=== PATIENT | female | born 1950 | race Caucasian/White ===

== ENCOUNTER → 2024-11-30 15:53 | Outpatient (REF) | payer OTHER, SELFPAY | LOC: MRI 3T 15:53 | PROVIDERS: ATTENDING PHYSICIAN Otolaryngology; FAMILY PHYSICIAN Nurse Practitioner Gerontology | DX: R42 Dizziness and giddiness (principal) | CPT/HCPCS: 70553; A9575 ==

== ENCOUNTER 2025-01-21 06:35 | Day surgery (SDC) | payer OTHER, SELFPAY | END 2025-01-21 14:00 | disposition home or self-care (01) | LOC: GI 06:35 | PROVIDERS: ATTENDING PHYSICIAN Internal Medicine | DX: Z12.11 Encounter for screening for malignant neoplasm of colon (principal); K64.8 Other hemorrhoids; K57.30 Diverticulosis of large intestine without perforation or abscess without bleeding; K55.20 Angiodysplasia of colon without hemorrhage; K58.9 Irritable bowel syndrome, unspecified; D12.2 Benign neoplasm of ascending colon; D12.5 Benign neoplasm of sigmoid colon; D12.3 Benign neoplasm of transverse colon; Z86.0100 Personal history of colon polyps, unspecified | CPT/HCPCS: 45385; 88305 ==

== ENCOUNTER 2025-07-06 19:55 | Inpatient (IN) | payer OTHER, SELFPAY ==
[2025-07-06 12:56] VITALS: BP 136/75
[2025-07-06 13:15] LABS: Hematocrit 33.1 % (37.0-47.0); Hemoglobin 11.3 g/dL (12.0-16.0); Mean Corp Hgb Conc. 34.1 g/dL (33.0-37.0); Mean Corpuscular Volume 94.3 fL (81.0-99.0); Nucleated Red Blood Cells % 0 %; Platelet Count 192 10^3/uL (130-400); Red Cell Dist. Width 14.6 % (11.5-14.5)
[2025-07-06 13:31] LABS: ALT (SGPT) 32 U/L (0-35); AST (SGOT) 26 U/L (14-36); Albumin 4.0 g/dl (3.5-5.0); Alkaline Phosphatase 56 U/L (38-126); Blood Urea Nitrogen 15 mg/dl (7-17); Calcium 9.3 mg/dl (8.4-10.2); Carbon Dioxide 19 mmol/L (22-30); Chloride 104 mmol/L (98-107); Glucose 89 mg/dl (70-99); Lipase 38 U/L (23-300); Potassium 2.9 mmol/L (3.5-5.1); Sodium 130 mmol/L (135-145); Total Protein 6.9 g/dl (6.3-8.2); eGFR > 60.00
--- NOTE | 2025-07-06 14:30 | EDRN ---
Pt states she arrives for diarrhea for past 5 days, having started on AM.
[2025-07-06 14:31] VITALS: BMI 32.6
[2025-07-06 14:35] VITALS: BP 120/78
[2025-07-06 15:00] VITALS: BP 111/70
--- NOTE | 2025-07-06 15:02 | ED.GENMED ---
History of Present Illness
General
Chief Complaint: Abdominal Symptoms
Time Seen by Provider: 07/06/25 15:02
History of Present Illness
History of Present Illness:
FOCUSED PAST MEDICAL HISTORY
- Diverticulosis, high blood pressure, has had pancreatic pseudocystectomy in 1982
REVIEW OF OLD RECORDS
- Patient had colonoscopy 01/21/2025 with polypectomies and diverticulosis was noted in the sigmoid colon
- Patient was admitted in 2011 with an abdominal wall hernia managed operatively in 2011
Note:
CHIEF COMPLAINT(S)
Watery diarrhea for nearly one week.
HISTORY OF PRESENT ILLNESS
The patient is a 74-year-old female presenting with a chief complaint of watery diarrhea persisting for approximately one week. She denies any vomiting. No recent antibiotic use or hospitalization was noted, and she has no history of Clostridium
difficile infection. A laboratory evaluation indicated normal kidney function, but a low potassium level and decreased bicarbonate were found. The patient reported a lack of significant abdominal pain, though mild stomach achiness was noted. She has
experienced fatigue and weakness due to the symptoms. There is an absence of body-wide achiness, and no significant abnormal white blood cell count was observed. During the visit, the patient considered the possibility of being discharged after
receiving intravenous fluids and potassium supplements, believing she might manage at home post-treatment.
PAST MEDICAL AND SURGICAL HISTORY
- Removal of a pseudocyst from the pancreas in 1982.
- Hernia repair (ventral) in 2011.
- History of twisted bowel.
- Breast cancer with an indwelling port used for treatment.
CHRONIC MEDICAL CONDITIONS SIGNIFICANTLY AFFECTING CARE
Breast cancer, for which the patient has a port.
PHYSICAL EXAM
General: Appears moderately distressed due to weakness but alert and cooperative.
Skin: Slightly dry oral mucosa.
Neck: Supple.
Cardiovascular: 3 out of 6 systolic murmur heard in the right upper sternal border,, no edema.
Respiratory: Non-labored respirations.
Gastrointestinal: Suggestion of abdominal wall hernias, which are soft with minimal tenderness; surgical scars noted.
Neurological: Appropriate mental status.
Psychiatric: Cooperative, appropriate mood and affect.
PROBLEM LIST
- Acute: Watery diarrhea, Dehydration, Electrolyte imbalance (low potassium), Abdominal achiness.
- Chronic: Breast cancer.
PLAN
- Administer intravenous fluids to address dehydration.
- Provide oral potassium supplements to correct electrolyte imbalance.
- Monitor response to treatment with fluids and potassium.
- Encourage the patient to provide a stool sample if possible for further evaluation.
- Consider discharge if the patient stabilizes post-treatment.
- Follow up with primary care or specialist as needed for ongoing management of breast cancer.
DIFFERENTIAL DIAGNOSIS
The Differential Diagnosis includes, in no particular order and is not limited to:
1. Gastroenteritis
2. Irritable bowel syndrome
3. Clostridium difficile infection
4. Inflammatory bowel disease (e.g., Crohns disease, Ulcerative colitis)
5. Bacterial infection (e.g., Salmonella, Shigella, Campylobacter)
6. Viral gastroenteritis
7. Medication-induced diarrhea
8. Parasitic infections (e.g., Giardia, Entamoeba histolytica)
9. Malabsorption syndromes
10. Hyperthyroidism
RADIOLOGY
- I personally reviewed imaging studies and there are some dilated loops of bowel and agree with radiologist's interpretation that there could be a closed-loop obstruction
LABS
- White count 3.7, hemoglobin 11.3, potassium 2.9, bicarb 19, creatinine 0.9
SUMMARY OF ENCOUNTER
The patient, a 74-year-old female, presented to the emergency department with a complaint of watery diarrhea persisting for one week. She reported associated symptoms of fatigue and weakness but no vomiting and minimal abdominal discomfort. There
was no recent antibiotic usage or history of Clostridium difficile infection. Lab evaluations revealed normal kidney function, low potassium levels, and decreased bicarbonate. Due to dehydration, the patient was administered intravenous fluids and
potassium supplements. Despite her weakness, the patient expressed hope that she could manage her symptoms at home and was considering discharge post-treatment.
PLAN
- Continue intravenous fluids to combat dehydration.
- Administer oral potassium supplements to correct electrolyte imbalance.
- Monitor the patients response to the treatment provided.
- The patient should provide a stool sample for further evaluation if possible.
- Consider discharge if the patient shows stabilization post-treatment.
- Advise follow-up with her primary care physician or specialist for ongoing breast cancer management.
INDEPENDENT REVIEW OF LABS AND INTERPRETATION OF TESTS
My independent review of the patients laboratory test results showed low potassium levels and decreased bicarbonate, which contribute to her symptoms.
MEDICAL DECISION MAKING
- Number and Complexity of Problems Addressed: Chronic conditions affecting care include breast cancer. Differential diagnosis considered: Gastroenteritis, Irritable bowel syndrome, Clostridium difficile infection, Inflammatory bowel disease,
Bacterial infection, Viral gastroenteritis, Medication-induced diarrhea, Parasitic infections, Malabsorption syndromes, Hyperthyroidism.
- Data:
- Category 1: Lab tests reviewed indicating normal kidney function but low potassium and decreased bicarbonate levels.
- Category 2: None discussed.
- Category 3: None discussed.
-Risk:
Consideration of Admission/Observation: Escalation of care including admission/observation was considered given the complexity and risk of the patients presenting complaint, exam findings, and her underlying comorbidities. However, ultimately I feel
the patient is safe for outpatient management with close follow-up. Reasoning: Work-up reassuring, does not reveal any acute life/organ-threatening processes, patients symptoms well controlled upon reevaluation, reexamination is reassuring, vitals
are stable, patient agreeable with discharge, reliable for follow-up.
DIAGNOSIS
- Possible closed-loop small bowel obstruction
- Diarrhea, unspecified (ICD-10: R19.7)
- Hypokalemia (ICD-10: E87.6)
- Dehydration (ICD-10: E86.0)
UPDATE
- On reassessment after IV fluids were given, she does not feel as weak but did report some mild ongoing abdominal discomfort
- Physical exam showed only mild diffuse tenderness with no peritoneal signs
- CT imaging suggested the possibility of a closed-loop obstruction
- I spoke to on-call general surgery and recommended NG tube, IV fluids, n.p.o.
- Will give additional potassium IV (gave orally earlier) and will also check lactic acid level
- Plan admission to the hospital
Past History
Past History
ED Past Medical History: None and Other (Status post pancreatic pseudocyst repair, incisional hernia, status post , as hyponatremia, hyper tension, sludge in her gallbladder, diverticular disease)
ED Past Surgical History: None
Social History
Tobacco: Former smoker
Alcohol: Occasional
Family History
Family History: Other (S esophagus hiatal and in her)
Phy Exam
Physical Exam
Physical Exam:
See HPI
Course
Orders/Labs/Results
Orders:
Orders
07/06/25 13:07
Complete Blood Count/With Diff Urgent
Comprehensive Metabolic Panel Urgent
Lipase Urgent
Magnesium Urgent
Comment: ADD ON
07/06/25 15:12
0.9% Sodium Chloride 500 ml [Nss] 1,000 ml IV BOLUS
07/06/25 15:15
Add On- LAB Urgent
Tests Added?: Mg
Potassium Chloride [KCl] 60 meq PO NOW STA
07/06/25 15:17
C DIFF [C difficile Antigen & Toxins] Urgent
COLLINS Source: Feces/Stool
Specimen Description:
Stool Culture Urgent
COLLINS Source: Feces/Stool
Specimen Description:
07/06/25 17:46
CT Abd/pelvis W Iv Cont Urgent
Comment:
Reason For Exam: diffuse abd pain; panc pseudocystectomy; diarrhea;
07/06/25 19:21
Lactic Acid Urgent
Potassium Chloride [KCl] 40 meq 0.9% Sodium Chloride 250 ml [Nss] 250 ml IV NOW
Abnormal Lab Results
07/06/25
13:07
WBC 3.7 L 10^3/uL
(4.8-10.8)
RBC 3.51 L 10^6/uL
(4.20-5.40)
Hgb 11.3 L g/dL
(12.0-16.0)
Hct 33.1 L %
(37.0-47.0)
MCH 32.2 H pg
(27.0-31.0)
RDW 14.6 H %
(11.5-14.5)
Absolute Lymphs (auto) 0.4 L 10^3/uL
(1.2-3.4)
Lymphocytes % 10.6 L %
(20.5-51.1)
Monocytes % 12.5 H %
(1.7-9.3)
Sodium 130 L mmol/L
(135-145)
Potassium 2.9 L mmol/L
(3.5-5.1)
Carbon Dioxide 19 L mmol/L
(22-30)
07/06/25 13:07
07/06/25 13:07
Vital Signs
Initial and Last Documented VS:
Initial Vital Signs
Temp Pulse Resp BP Pulse Ox
36.5 C 96 18 136/75 99
07/06/25 12:56 07/06/25 12:56 07/06/25 12:56 07/06/25 12:56 07/06/25 12:56
Last Documented Vital Signs
Temp Pulse Resp BP Pulse Ox
36.5 C 76 15 116/78 100
07/06/25 12:56 07/06/25 19:00 07/06/25 19:00 07/06/25 17:34 07/06/25 17:45
*Pulse Oximetry
SaO2: 100
Oxygen Mode of Delivery: Room air
Patient hypoxic: no
*Critical Care Note
Total Time (30-74mins, 75-104mins- exclusive of procedures): Not Applicable
ED Attending Note
-
Portions of this chart may have been created with voice recognition software.� Occasional wrong word or��sound alike� substitutions may have occurred due to the inherent limitations of voice recognition software.
Discharge Plan
Departure
Patient Disposition: Admit
Date of Disposition: 07/06/25
Time of Disposition: 19:28
Presentation/result/management discussed w/ accepting MD/DO: Hospitalist
Discharge Problem:
Abdominal pain
Prescriptions:
No Action
calcium carbonate-vitamin D3 [Calcium 600 + D(3)] 1 EACH tablet
1 ea PO BID
mometasone [Nasonex] 17 GM spray,non-aerosol
2 spray intranasal DAILY PRN (Reason: allergies)
glucosamine hairston 2KCl-chondroit 1 EACH capsule
1 ea PO BID
simvastatin 20 MG tablet
20 mg PO QPM
omega-3 fatty acids-fish oil [Fish Oil] 1,000 MG capsule
1 cap PO
Norvasc:
Patient Comments:
dose unknown
omeprazole magnesium [Prilosec OTC] 20 MG tablet,delayed release (DR/EC)
20 mg PO
hydrocodone-acetaminophen [Vicodin] 1 EACH tablet
1 - 2 tab PO Q6HPRN PRN (Reason: severe pain) Qty: 10 0RF
Referrals:
Evaristo Meade CRNP [Family Provider, General]
Interventions
Interventions:
*Risk Screen - Suicide Last Done: 07/06/25 14:32
*General Assessment Last Done: 07/06/25 14:33
*Neglect/Abuse Screening Last Done: 07/06/25 14:33
*ED COVID-19 Vaccine History Last Done: 07/06/25 14:32
*ED Influenza Vaccine History Last Done: 07/06/25 14:32
[facility] Fall Risk Assessment Tool Last Done: 07/06/25 14:32
LW-Odajrh-Gxmzxnlmmv Assessment Last Done: 07/06/25 15:20
Discharge Date and Time
Print Language: YI
--- NOTE | 2025-07-06 15:11 | EDRN ---
Dr. Rutledge in room w/ pt at this time and verbally just ordered 1 liter or NSS wide open at this time.
[2025-07-06] MEDS: NSS 1000 IV (15:13)
[2025-07-06] MEDS: KCL 60 MEQ PO (15:21)
[2025-07-06 15:53] LABS: Magnesium 2.0 mg/dl (1.6-2.3)
[2025-07-06 16:00] VITALS: BP 125/80
--- NOTE | 2025-07-06 16:54 | EDRN ---
Dr. Rutledge in to see pt.
--- NOTE | 2025-07-06 17:00 | EDRN ---
Pt ambulated to BR after being disconnected from electronic device monitor and in BR attempting BM at this time.
[2025-07-06 17:34] VITALS: BP 116/78
--- NOTE | 2025-07-06 17:43 | EDRN ---
Dr. Rutledge in room w/ pt at this time.
--- NOTE | 2025-07-06 17:56 | EDRN ---
Dr. Rutledge ordered CT r/t pt's abd pain.
--- NOTE | 2025-07-06 19:24 | HPS.HSE ---
Family Physician
-
Family Physician: ERICK West
Chief Complaint
-
watery diarrhea
History of Present Illness
74-year-old female with past medical history for pancreatic pseudocyst repair, incisional hernia, hyponatremia, hypertension, gallbladder sludge, diverticular disease presenting with a chief complaint of watery diarrhea persisting for approximately
for 6 days. denied nausea but vomited once. denied abdominal pain. She denies any vomiting. patient complained of poor appetie. denied fever, chills, HUERTA, dizzy or syncope.denied chest pain,sob. denied dysuria or hematuria.
concern of SBO. NG in place. admitting for further management.
Medical History
Past Medical History
Past Medical History: Reports Other
Additional Past Medical History:
Venous insufficiency, chronic hyponatremia, hypertension, hyperlipidemia, allergic rhinitis, lymphedema, osteoarthritis, peripheral venous insufficiency, anxious, depression, angioedema, cardiomegaly, GERD, nonischemic cardiomyopathy, breast cancer,
pancreatic pseudocyst, left outer nodule, rheumatoid arthritis, systolic heart murmur
Past Surgical History: Reports Other
Additional Past Surgical History:
Bilateral knee replacement, incisional hernia repair, bilateral bunionectomy, right wrist ganglionectomy, left lower extremity venous surgery, pancreatic pseudocyst ectomy, , tonsillectomy, right knee revision, left ureterocele, bilateral
cataracts, left mastectomy, left axillary lymph node dissection, left axillary seroma drainage with a spacer
Social History
Tobacco: Former Smoker
Alcohol: Occasional
Drug: None
Family History
Family History: Not pertinent
Allergies / Home Medications
Allergies reflects when Allergies were last updated in [facility].
Home Medications with original date entered in [facility]
Allergy/Medication List:
Allergies
Allergy/AdvReac Type Severity Reaction Status Date / Time
Aminoglycosides Allergy Hives Verified 04/01/13 19:59
cephalexin Allergy Anaphylaxis Verified 04/01/13 19:59
Cephalosporins Allergy Hives Verified 04/01/13 19:59
erythromycin base Allergy Hives Verified 04/01/13 19:59
gabapentin Allergy Unknown Verified 04/01/13 19:59
gentamicin Allergy Anaphylaxis Verified 04/01/13 19:59
lisinopril Allergy Unknown Verified 07/18/16 19:55
morphine Allergy VOMITING/HUERTA Verified 04/01/13 19:59
LLUCINATION
S
penicillin G Allergy Hives Verified 04/01/13 19:59
Penicillins Allergy Hives Verified 04/01/13 19:59
Home Medications
glucosamine sulfate dipotassium Cl 500 mg-chondroitin 400 mg capsule 1 ea PO BID 07/28/09
abemaciclib 100 mg tablet (Verzenio) 100 mg PO BID 07/06/25
acetaminophen 300 mg-codeine 30 mg tablet 1 tab PO HS 07/06/25
bupropion HCl 150 mg 24 hr tablet, extended release 150 mg PO DAILY 07/06/25
dofetilide 500 mcg capsule 500 mcg PO Q12H 07/06/25
empagliflozin 10 mg tablet (Jardiance) 10 mg PO DAILY 07/06/25
furosemide 20 mg tablet 20 mg PO DAILY 07/06/25
letrozole 2.5 mg tablet 2.5 mg PO DAILY 07/06/25
loratadine 10 mg tablet (Claritin) 10 mg PO DAILY 07/06/25
metoprolol succinate 50 mg tablet,extended release 24 hr 50 mg PO Q12H 07/06/25
rivaroxaban 20 mg tablet (Xarelto) 20 mg PO DAILY 07/06/25
rosuvastatin 20 mg tablet 20 mg PO DAILY 07/06/25
tirzepatide (weight loss) 7.5 mg/0.5 mL subcutaneous pen injector (Zepbound) 7.5 mg SC WEEKLY 07/06/25
trospium 60 mg capsule,extended release 24 hr 60 mg PO DAILY 07/06/25
Review of Systems
-
Constitutional: Reports No Symptoms
EENT: Reports No Symptoms
Respiratory: Reports No Symptoms
Cardiac: Reports No Symptoms
Abdomen/GI: Reports Diarrhea
: Reports No Symptoms
Musculoskeletal: Reports No Symptoms
Skin: Reports No Symptoms
Neurological: Reports No Symptoms
Endocrine: Reports No Symptoms
Hematologic/Lymphatic: Reports No Symptoms
Psych: Reports No Symptoms
Physical Exam
Vital Signs
Vital Signs
Temp Pulse Resp BP Pulse Ox
97.7 F 76 15 116/78 100
07/06/25 12:56 07/06/25 19:00 07/06/25 19:00 07/06/25 17:34 07/06/25 17:45
Physical Exam
General: Well Developed, Well Nourished and No Apparent Distress
HEENT: NormoCephalic, Moist mucous membranes and Atraumatic
Respiratory: Clear
Cardiac: S1/S2 and Regular Rhythm; No Murmur or Rub
GI: Soft, Non Tender and Normal Bowel Sounds; No Organomegaly
Rectal: Deferred by Provider
Musculoskeletal: No Clubbing, No Cyanosis and No Edema
Skin: No Rash
Neuro: AO x 3 and Nonfocal/grossly intact
Psych: Calm
Laboratory Results
-
07/06/25 13:07
07/06/25 13:07
Laboratory Results
Total Bilirubin 1.0 mg/dl (0.2-1.3) 07/06/25 13:07
AST 26 U/L (14-36) 07/06/25 13:07
ALT 32 U/L (0-35) 07/06/25 13:07
Alkaline Phosphatase 56 U/L (38-126) 07/06/25 13:07
Lipase 38 U/L (23-300) 07/06/25 13:07
Data Reviewed
-
CT Scan: Report Reviewed by me
Lab Data: Labs Reviewed by me
Impression/Plan
-
# Watery diarrhea concern for closed-loop small bowel obstruction
# History of bowel resection, ventral hernia repair with mesh, pancreatic pseudocyst ectomy
- N.p.o., fluids for hydration
- NG tube
-Stool culture and C. difficile
- Surgery consulted
- CT abdomen pelvis with impression of here is a dilated fluid and air-filled loop of small bowel, probably best visualized on coronal images extending from the left upper abdomen into the left pelvis and then into the right pelvis, where there is a
focal transition of caliber, best seen on coronal views. I have difficulty following the dilated loop of small bowel in the left upper quadrant. The cecum is located in the left upper quadrant, and I believe that I can visualize the ileocecal
junction, probably on coronal images 22 and 23 of series 202, with collapsed caliber distal ileum.Findings suggest the possibility of a closed loop small bowel obstruction. As warranted, further evaluation with CT scan with oral contrast may be
helpful.he cecum is in the left upper quadrant. There is gaseous distention of the cecum as well as the transverse colon.No evidence of free intraperitoneal air.Left adrenal gland mass is present, increased in size since examination 2016. Appearance
is not characteristic for adenoma, although adenomas still possible. Other differential considerations include metastatic disease and adrenal cortical carcinoma. This is adjacent to the posterior margin of the stomach, but probably separate, and
therefore gastric fundal diverticulum is unlikely.Slight nodularity of the central right adrenal gland which appears stable from 2016 examination and probably represents a small adenoma or hyperplasia.Cholelithiasis with distention of the
gallbladder. No CT findings for acute cholecystitis. No evidence of biliary ductal dilation.Bony degenerative changes as described.
# Metabolic acidosis/hypokalemia secondary to diarrhea/dehydration
# Acute on chronic hyponatremia
-Sodium 130, potassium 2.9, CO2 19
- Fluids continued
- IV KCl
- BMP in the morning
# History of breast cancer
- S/p mastectomy
- Last chemo in 2022
- Patient is on Verzenio as outpatient
# Anxiety
-Bupropion as outpatient
# History of paroxysmal A-fib
# Congestive heart failure
- Will hold Tikosyn and Xarelto
- IV Lopressor as needed
- Hold Jardiance and Lasix
# Hyperlipidemia
- On statin as outpatient
#DVT prophylaxis
-scd
#CODE status
-full code
--- NOTE | 2025-07-06 19:30 | W.PN.UPDATE ---
Update Note
Progress Note Update
This note serves as an addendum to the H&P by outside energy sales representatives Melvin Rosas
HPI
74F
PHX: Removal of a pseudocyst from the pancreas(1982) Ventral Hernia repair(2011) HX twisted bowel, HX Breast cancer with an indwelling port used for treatment.
seen at ER
- abdominal discomfort and fullness + watery diarrhea for 5d + denied any significant abd pain at first
- denies any vomiting.
- No recent ABx use or hospitalization was noted
- No prior HX Clostridium difficile infection.
- lack of significant abdominal pain, though mild stomach achiness was noted.
ROS
Last nl BM 6days ago
- since the watery diarrhea
- Vomit once
- POS flatus many times
- Denied nausea
Relevant VS
Temp Pulse Resp BP Pulse Ox
97.7 F 76 15 116/78 100
07/06/25 12:56 07/06/25 19:00 07/06/25 19:00 07/06/25 17:34 07/06/25 17:45
PE
Gen:
HEENT: NGT placed - no NGT aspirate yet, empty can
Neck: supple
Lungs: symmetric AE
Cor: RRR S1 S2
Abdomen:�distended and firm , NT NG , NRT, POS BS and high pitch
PET TECHNOLOGIST:AAO3
MS: No edema
Psych: Nl mood and affect
Relevant Data
07/06/25
13:07
WBC 3.7 L
Hgb 11.3 L
Plt Count 192
Sodium 130 L
Potassium 2.9 L
Chloride 104
Carbon Dioxide 19 L
Creatinine 0.9
eGFR > 60.00
Glucose 89
Total Bilirubin 1.0
AST 26
ALT 32
[address] AP w IV
- Findings suggest the possibility of a closed loop small bowel obstruction. As warranted, further evaluation with CT scan with oral contrast may be helpful.
- The cecum is in the left upper quadrant. There is gaseous distention of the cecum as well as the transverse colon.
- No evidence of free intraperitoneal air.
- Left adrenal gland mass is present, increased in size since examination 2016. Appearance is not characteristic for adenoma, although adenomas still possible.
Other differential considerations include metastatic disease and adrenal cortical carcinoma.
This is adjacent to the posterior margin of the stomach, but probably separate, and therefore gastric fundal diverticulum is unlikely.
- Slight nodularity of the central right adrenal gland which appears stable from 2016 examination and probably represents a small adenoma or hyperplasia
- Cholelithiasis with distention of the gallbladder. No CT findings for acute cholecystitis. No evidence of biliary ductal dilation.
- Bony degenerative changes as described.
No prior hospitalist admission:
ASSESSMENT & PLAN
Suspect partial closed loop SBO: Plenty of flatus and watery BMs
No evidence of free intraperitoneal air
- Tolerating NGT
- NGT to gravity
- NPO and IV NS
- PRN analgesia
- PRN anti emetics
- IOs
- GS consulted
Hyponatremia
Hypokalemia
- due to dehydration and decres PO intake
- IV NS
- IV KCL 40 x at ER
HX Prx AF
- check EKG
- Hold Xarelto
- Hold Tikosyn
- PRN IV Metoprolol 5 mg q6h prn
- To consider Heparin gtt if prolonged NPO > 24 Hrs
- FU @ [facility] [place]
HX CHF type unknown
Clinically vol. contracted
- FU daily Wt and IOs
- Gentle IV NS
HLD
- Hold Simvastatin - due to NPO/NGT
pHTN
- Hold Amlodipine
HX Breast CA 2022
- has PORT implant
- s/p Lt mastectomy , XR and Last chemo in 2022
- Recent PET scan is clear
- FU @ [facility]
DVT Px: SCD
Full code
IP MS
[2025-07-06] MEDS: KCL 270 MEQ IV (20:20)
[2025-07-06 23:18] VITALS: BP 110/69
[2025-07-07] VITALS (7 sets, daily range): BP systolic 104–124; BP diastolic 57–72; BMI 32.6
[2025-07-07] MEDS: NSS 1000 IV ×2 (00:32→09:32)
[2025-07-07 09:06] LABS: Hematocrit 32.0 % (37.0-47.0); Hemoglobin 10.8 g/dL (12.0-16.0); Mean Corp Hgb Conc. 33.8 g/dL (33.0-37.0); Mean Corpuscular Volume 95.5 fL (81.0-99.0); Platelet Count 180 10^3/uL (130-400); Red Cell Dist. Width 15.4 % (11.5-14.5)
[2025-07-07] MEDS: OMNIPAQUE 50 ML PO (09:32)
--- NOTE | 2025-07-07 09:57 | CON.GS ---
Addendum entered and electronically signed by John Vargas MD 07/07/25 13:56:
Rpt CT without signs of SBO. RLQ spigelian vs incisional hernia noted, unobstructed loop of bowel present within the hernia, was not in the hernia on admit CT. OK to DC NGT and start CLD. D/w Hospitalist.
Addendum entered and electronically signed by John Vargas MD 07/07/25 11:23:
I was physically present and personally performed the tinsley portions of the surgical evaluation and/or procedure with the resident. I discussed the findings, reviewed the resident�s note, and confirmed the medical decision-making. I provided direct
supervision as required and agree with the assessment and plan as documented with the following additions/corrections:
74F with one week diarrhea, multiple bouts daily, mild generalized soreness she attributes to the frequent stools but no significant ab pain, no n/v, no f/c. Began after seafood meal. Imaging concerning for poss pSBO with transition point in RLQ
with significant gaseous distention of the colon and air tracking to the rectum. No further diarrhea since admit. Plan for stool studies when sample available. Would rpt CT scan with PO contrast today.
Original Note:
Consultation
-
Date/Time Consultation Requested: 07/06/2025
Date/Time Consultation Performed: 07/07/2025
Requesting Provider: Jaylyn Rosas
Performing Provider: Dr. Vargas
Reason for Consultation: SBO
Medical History
-
Chief Complaint: Abdominal pain, watery diarrhea
History of Present Illness:
Ms. Fuller is a 74-year-old woman coming in with watery diarrhea of 1 week and bellyache. She reported that it started about a week ago after traveling to [place] with family and eating out at a restaurant where she ordered seafood. No other family
members are ill or have similar symptoms. She reports her stool is brown liquid, no bloody bowel movements and no black stools. She reports no abdominal pain but occasional bellyache that is intermittent. She reports no fevers or chills and
reports that she has been burping and passing gas multiple times. She has a history of multiple abdominal surgeries including pancreatic cyst pseudocyst repair, multiple hernias, , and incarcerated bowel that did not require resection
about 7 years ago. She also has a past medical history of hypertension chronic hyponatremia, hyperlipidemia, GERD, nonischemic cardiomyopathy, breast cancer, rheumatoid arthritis, venous insufficiency, angioedema. She reports that she is
up-to-date with her colonoscopies with no significant abnormalities noted. This morning she did not endorse nausea or vomiting denied abdominal pain, with minimal output from her NG tube. CT scan in the ED notable for dilated small bowel and
gaseous distention of the colon with air present in the rectum.
Past Medical History
Past Medical History: Cancer (Left breast cancer s/p mastectomy), GERD, HTN, Hypercholesterolemia, Psychiatric (Anxiety, depression) and Other (Venous insufficiency, chronic hyponatremia, allergic rhinitis, lymphedema, osteoarthritis, angioedema,
cardiomegaly, GERD, nonischemic cardiomyopathy, pancreatic pseudocyst, left outer nodule, rheumatoid arthritis )
Past Surgical History: , Hernia Repair (Incisional hernia), Orthopedic (Bilateral TKA, with right revision), Tonsilectomy and Other (bilateral bunionectomy, right wrist ganglionectomy, left lower extremity venous surgery, pancreatic
pseudocyst ectomy, left ureterocele, bilateral cataracts, left mastectomy, left axillary lymph node dissection, left axillary seroma drainage )
Social History
Tobacco: Former Smoker
Alcohol: Occasional
Drug: None
Family History
Family History: Reviewed & Not Pertinent
Allergies / Home Medications
Allergy/AdvReac Type Severity Reaction Status Date / Time
Aminoglycosides Allergy Hives Verified 04/01/13 19:59
cephalexin Allergy Anaphylaxis Verified 04/01/13 19:59
Cephalosporins Allergy Hives Verified 04/01/13 19:59
erythromycin base Allergy Hives Verified 04/01/13 19:59
gabapentin Allergy Unknown Verified 04/01/13 19:59
gentamicin Allergy Anaphylaxis Verified 04/01/13 19:59
lisinopril Allergy Unknown Verified 07/18/16 19:55
morphine Allergy VOMITING/HUERTA Verified 04/01/13 19:59
LLUCINATION
S
penicillin G Allergy Hives Verified 04/01/13 19:59
Penicillins Allergy Hives Verified 04/01/13 19:59
�Medication �Instructions �Recorded �Confirmed �Type
glucosamine sulfate dipotassium Cl 1 ea PO BID 07/28/09 07/06/25 History
500 mg-chondroitin 400 mg capsule
abemaciclib 100 mg tablet 100 mg PO BID 07/06/25 07/06/25 History
(Verzenio)
acetaminophen 300 mg-codeine 30 mg 1 tab PO HS 07/06/25 07/06/25 History
tablet
bupropion HCl 150 mg 24 hr tablet, 150 mg PO DAILY 07/06/25 07/06/25 History
extended release
dofetilide 500 mcg capsule 500 mcg PO Q12H 07/06/25 07/06/25 History
empagliflozin 10 mg tablet 10 mg PO DAILY 07/06/25 07/06/25 History
(Jardiance)
furosemide 20 mg tablet 20 mg PO DAILY 07/06/25 07/06/25 History
letrozole 2.5 mg tablet 2.5 mg PO DAILY 07/06/25 07/06/25 History
loratadine 10 mg tablet (Claritin) 10 mg PO DAILY 07/06/25 07/06/25 History
metoprolol succinate 50 mg 50 mg PO Q12H 07/06/25 07/06/25 History
tablet,extended release 24 hr
rivaroxaban 20 mg tablet (Xarelto) 20 mg PO DAILY 07/06/25 07/06/25 History
rosuvastatin 20 mg tablet 20 mg PO DAILY 07/06/25 07/06/25 History
tirzepatide (weight loss) 7.5 7.5 mg SC WEEKLY 07/06/25 07/06/25 History
mg/0.5 mL subcutaneous pen
injector (Zepbound)
trospium 60 mg capsule,extended 60 mg PO DAILY 07/06/25 07/06/25 History
release 24 hr
Review of Systems
-
History Source: Patient
All other systems: Negative unless noted
Abdomen/GI: Nausea and Diarrhea
A 10 point review of systems was completed, and was negative except as per HPI.
Physical Exam
Vital Signs
Temp Pulse Resp BP Pulse Ox
98.3 F 108 16 124/66 98
07/07/25 07:10 07/07/25 07:10 07/07/25 07:10 07/07/25 07:10 07/07/25 07:10
07/06/25 07/07/25 07/08/25
06:59 06:59 06:59
Actual Weight 75.6 kg
Body Mass Index (BMI) 32.6
Lab Results
07/07/25 08:49
WBC 2.9 10^3/uL (4.8-10.8) L 07/07/25 08:49
Hgb 10.8 g/dL (12.0-16.0) L 07/07/25 08:49
Hct 32.0 % (37.0-47.0) L 07/07/25 08:49
Plt Count 180 10^3/uL (130-400) 07/07/25 08:49
Abs Immat Gran (auto) 0.0 10^3/uL (0-0.05) 07/06/25 13:07
Neutrophils % 75.2 % (42.2-75.2) 07/06/25 13:07
Physical Exam
General: Well Developed, Well Nourished, No Apparent Distress and Comfortable; Negative Fever or Chills
HEENT: Normocephalic and Anicteric
GI: Soft, Non Distended, Tender (Mild tenderness to palpation left upper quadrant, left lower quadrant), Incisions (Well-healed incisions from prior surgeries) and Other (No guarding)
Skin: Warm and Dry; Negative Jaundice
Neuro: Awake and Alert
Assessment / Plan
-
Ms. Fuller is a 74-year-old woman coming in with watery diarrhea of 1 week and bellyache. She reported that it started about a week ago after traveling to [place] with family and eating out at a restaurant where she ordered seafood. She was
admitted for metabolic derangements CT abdomen pelvis showed dilated small bowel and distention of colon with air in rectum.
#Metabolic acidosis secondary to acute diarrhea
#SBO?
Initially concern for SBO due to dilated bowel loops however air so present in colon and rectum
Noncontrast CT images hard to interpret
- N.p.o.
- IV fluids
- Follow-up stool culture and C. difficile
- Repeat CT abdomen pelvis with oral contrast through NG tube
- Clamp NG tube after contrast
- Pending CT images, remove NG tube, initiate CLD
[2025-07-07 10:28] LABS: Blood Urea Nitrogen 8 mg/dl (7-17); Calcium 8.7 mg/dl (8.4-10.2); Carbon Dioxide 19 mmol/L (22-30); Chloride 113 mmol/L (98-107); Estimated Creatinine Clearance 76 ml/min; Glucose 68 mg/dl (70-99); Potassium 3.7 mmol/L (3.5-5.1); Sodium 138 mmol/L (135-145); eGFR > 60.00
--- NOTE | 2025-07-07 11:04 | W.PN.HOSP.TC ---
Addendum entered and electronically signed by Burak Miranda DO 07/07/25 16:45:
Spoke with Dr. Vargas, we discussed CT scan findings. He believes that patient has acute infectious colitis. No evidence of obstruction.
Start clear liquid diet, advance as tolerated. Resume Xarelto, Tikosyn.
Original Note:
Today's Communication/Plan
-
Lactated Ringer's IV fluids
Await CT
Assessment / Plan
Assessment / Plan
Gen-AAOx3, NAD
HEENT-NC, AT, anicteric, clear oral mm, NG tube disconnected
Neck-supple
CV-reg, no M, +S1/S2
Lungs-clear B/L
Abd-soft, NT, ND
Ext-no edema
Musculoskeletal-no cyanosis, clubbing
Skin-warm and dry
Neuro-grossly non-focal
Psych-calm, cooperative
Small bowel obstruction -awaiting repeat CT with oral and IV contrast. Continue NPO. NG tube clamped. General surgery following. Patient denies history of bowel obstruction in the past.
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
Hypovolemic hyponatremia -improved.
Hypokalemia -improved.
Normal anion gap metabolic acidosis -hyperchloremic and exacerbated by normal saline infusion. Will change to lactated Ringer's IV fluids. Labs in the morning.
Paroxysmal atrial fibrillation -holding Xarelto for n.p.o. status, also in case of any potential procedures.
Hold Tikosyn as well.
Leukopenia, anemia -present on admission. Baseline labs unknown. Monitor for now.
Essential hypertension -stable.
Hyperlipidemia
History of breast cancer -2022. Treated with left mastectomy, radiation and chemotherapy. Has port in place.
Recent PET scan is clear.
Chronic left adrenal mass -noted on CT scan, 3.1 cm. Increased in size compared to 2016 CT according to radiologist. Patient states she has never had a workup for this in the past. Recommend outpatient follow-up with endocrinology.
Colon polyps, diverticulosis, colonic angioectasia, internal hemorrhoids -noted on last colonoscopy December 2024.
Obesity due to excess calories
Full code
Anticipated Discharge: > 48 hours
Subjective/Interval History
-
Date of Service: July 07, 2025
Patient seen and examined. Denies abdominal pain or nausea. No bowel movement so far in the hospital. No other complaints.
Objective Data
-
Labs:
Laboratory Results
07/07/25
08:49
WBC 2.9 L
Hgb 10.8 L
Hct 32.0 L
Plt Count 180
Sodium 138 D
Potassium 3.7 D
Chloride 113 H
Carbon Dioxide 19 L
BUN 8
Creatinine 0.6
Glucose 68 L
Calcium 8.7
Vital Signs:
Vital Signs
Temp Pulse Resp BP Pulse Ox
98.3 F 108 16 124/66 98
07/07/25 07:10 07/07/25 07:10 07/07/25 07:10 07/07/25 07:10 07/07/25 08:00
I&O
07/06/25 07/07/25 07/08/25
06:59 06:59 06:59
Output Total 300 / 300
Balance -300 / -300
Review of Systems
-
History Source: Patient
All other systems: Reviewed and negative
[2025-07-07] MEDS: LR 1000 IV (11:46)
[2025-07-07] MEDS: TOPROL XL 50 MG PO (14:42)
[2025-07-07] MEDS: TIKOSYN 500 MCG PO (14:42)
--- NOTE | 2025-07-07 15:42 | CM ---
Patient seen at bedside on . Patient states that she lives with her and daughter/granddaughters in a 2 story home. Patient has a walker, rollator, commode at home. Patient uses the walker outside the home. Patient PCP is ANAMAR[facility] S[facility] in [place] and she uses the [facility] in [place]. Patient plan is for discharge home with no needs vs home with VN. Patient stated she was independent prior to admission. CM will continue to follow for discharge planning needs.
Plan; home with VN vs home with no needs.
[2025-07-07] MEDS: XARELTO 20 MG PO (17:47)
[2025-07-08] VITALS (7 sets, daily range): BP systolic 97–108; BP diastolic 64–77
[2025-07-08] MEDS: LR 1000 IV (01:17)
[2025-07-08] MEDS: TOPROL XL 50 MG PO ×2 (01:17→15:40)
[2025-07-08] MEDS: TIKOSYN 500 MCG PO ×2 (01:17→15:40)
[2025-07-08] MEDS: CRESTOR 20 MG PO (07:39)
[2025-07-08] MEDS: WELLBUTRIN XL (24 hour extended release) 150 MG PO (07:40)
[2025-07-08] MEDS: FEMARA 2.5 MG PO (07:40)
[2025-07-08 07:54] LABS: Hematocrit 28.0 % (37.0-47.0); Hemoglobin 9.7 g/dL (12.0-16.0); Mean Corp Hgb Conc. 34.6 g/dL (33.0-37.0); Mean Corpuscular Volume 91.2 fL (81.0-99.0); Platelet Count 158 10^3/uL (130-400); Red Cell Dist. Width 15.3 % (11.5-14.5)
[2025-07-08 08:25] LABS: Blood Urea Nitrogen 4 mg/dl (7-17); Calcium 8.3 mg/dl (8.4-10.2); Carbon Dioxide 19 mmol/L (22-30); Chloride 107 mmol/L (98-107); Estimated Creatinine Clearance 76 ml/min; Glucose 82 mg/dl (70-99); Potassium 3.0 mmol/L (3.5-5.1); Sodium 134 mmol/L (135-145); eGFR > 60.00
--- NOTE | 2025-07-08 09:14 | W.PN.GS2 ---
Addendum entered and electronically signed by Bladimir Dietrich MD 07/08/25 10:00:
I was physically present and personally performed the tinsley portions of the surgical evaluation and/or procedure with the resident. I discussed the findings, reviewed the resident�s note, and confirmed the medical decision-making. I provided direct
supervision as required and agree with the assessment and plan as documented with the following additions/corrections:
Passing flatus, no bowel movement
Tolerating liquids, appetite still suppressed. No nausea or vomiting
AFVSS
NAD AAO x 3
ABD: Soft, no significant distention, minimal tenderness. No rebound rigidity or guarding
CT contrast imaging study reviewed from 07/07/2025. Contrast opacifies the small bowel without dilation. Right sided spigelian hernia containing nonobstructed loop of small bowel with contrast at no proximal distention. Cecum appears to be in the
upper abdomen with a bascule configuration but no signs of obstruction or true volvulus.
Assessment/plan: 74-year-old female admitted with possible pSBO versus enteritis
Clinically improving but not resolved, nonobstructive pattern on CT imaging yesterday
Cautious dietary advancement to full liquids
Follow-up abdominal x-ray imaging today to confirm further passage of oral contrast administered yesterday into the colon.
Will follow
Original Note:
Today's Communication / Plan
-
ADAT
Abdominal x-ray
Assessment / Plan
-
Ms. Fuller is a 74-year-old woman coming in with watery diarrhea of 1 week and bellyache. She reported that it started about a week ago after traveling to [place] with family and eating out at a restaurant where she ordered seafood. She was
admitted for metabolic derangements CT abdomen pelvis showed dilated small bowel and distention of colon with air in rectum.
#Metabolic acidosis secondary to acute diarrhea
# Partial SBO
Initially concern for SBO due to dilated bowel loops however air so present in colon and rectum
Noncontrast CT images hard to interpret
Contrast CT without obvious signs of bowel obstruction
No further episodes of diarrhea
- ADAT
- full liquids
- Follow-up stool culture and C. difficile
- Abdominal x-ray to assess for passage of contrast
Subjective Data
-
Patient reported feeling a bit better than yesterday. She was able to tolerate CLD without issues, reported no nausea no vomiting no chest pain no shortness of breath. She had flatus yesterday but not this morning, still yet to have a bowel
movement. No fevers no chills. Date of Service: July 08, 2025
Objective Data
-
Intake and Output
07/07/25 07/08/25 07/09/25
06:59 06:59 06:59
Intake Total 480 / 480
Output Total 300 / 300
Balance -300 / -300 480 / 480
Intake:
Oral fluids 480 / 480
Output:
Gastrointestinal tube output ( 300 / 300
Total)
Other:
Number of approximated MODERATE 3
amounts of urine
Vital Signs
Temp Pulse Resp BP Pulse Ox
98.0 F 79 18 97/64 98
07/08/25 08:07 07/08/25 08:07 07/08/25 08:07 07/08/25 08:07 07/08/25 08:07
Lab Results
07/08/25 07:20
07/08/25 07:20
Calcium 8.3 mg/dl (8.4-10.2) L 07/08/25 07:20
Magnesium 2.0 mg/dl (1.6-2.3) 07/06/25 13:07
Total Bilirubin 1.0 mg/dl (0.2-1.3) 07/06/25 13:07
AST 26 U/L (14-36) 07/06/25 13:07
ALT 32 U/L (0-35) 07/06/25 13:07
Alkaline Phosphatase 56 U/L (38-126) 07/06/25 13:07
Total Protein 6.9 g/dl (6.3-8.2) 07/06/25 13:07
Albumin 4.0 g/dl (3.5-5.0) 07/06/25 13:07
Physical Exam
-
General: Well Developed, Well Nourished, No Apparent Distress and Comfortable
GI: Soft, Non Distended, Mild tenderness to palpation left upper quadrant, left lower quadrant, no guarding, no rebound
Patient has a faye catheter: No
Patient has a central line: No
--- NOTE | 2025-07-08 10:45 | W.PN.HOSP.TC ---
Today's Communication/Plan
-
Replete potassium
Change IV fluids
Abdominal x-ray
Labs in the morning
Assessment / Plan
Assessment / Plan
Gen-AAOx3, NAD
HEENT-NC, AT, anicteric, clear oral mm, NG tube disconnected
Neck-supple
CV-reg, no M, +S1/S2
Lungs-clear B/L
Abd-soft, NT, ND
Ext-no edema
Musculoskeletal-no cyanosis, clubbing
Skin-warm and dry
Neuro-grossly non-focal
Psych-calm, cooperative
Acute gastroenteritis -most likely diagnosis explaining her presentation to the hospital.
Now on full liquid diet, advance as tolerated.
No bowel movements in the hospital so far. Gastroenteritis resolved.
Small bowel obstruction -SBO ruled out on repeat CT scan.
Awaiting abdominal x-ray today to evaluate for movement of contrast as per surgical service.
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
Hypovolemic hyponatremia -134, monitor for now.
Hypokalemia -3.0, will replete. Check magnesium.
Normal anion gap metabolic acidosis -hyperchloremic and exacerbated by normal saline infusion. Bicarbonate still 19 this morning. Will change to sodium bicarbonate infusion. Labs in the morning.
Paroxysmal atrial fibrillation -continue Xarelto, Tikosyn.
Leukopenia, anemia -present on admission. Baseline labs unknown. Monitor for now.
Essential hypertension -stable.
Hyperlipidemia -on rosuvastatin.
History of breast cancer -2022. Treated with left mastectomy, radiation and chemotherapy. Has port in place.
Recent PET scan is clear.
Chronic left adrenal mass -noted on CT scan, 3.1 cm. Increased in size compared to 2016 CT according to radiologist. Patient states she has never had a workup for this in the past. Recommend outpatient follow-up with endocrinology.
Colon polyps, diverticulosis, colonic angioectasia, internal hemorrhoids -noted on last colonoscopy December 2024.
Obesity due to excess calories
Full code
Anticipated Discharge: Within 24 hours
Subjective/Interval History
-
Date of Service: July 08, 2025
Patient seen and examined, denies abdominal discomfort, nausea. No new complaints.
Objective Data
-
Labs:
Laboratory Results
07/08/25
07:20
WBC 2.9 L
Hgb 9.7 L
Hct 28.0 L
Plt Count 158
Sodium 134 L
Potassium 3.0 L
Chloride 107
Carbon Dioxide 19 L
BUN 4 L
Creatinine 0.5 L
Glucose 82
Calcium 8.3 L
Vital Signs:
Vital Signs
Temp Pulse Resp BP Pulse Ox
98.0 F 79 18 97/64 98
07/08/25 08:07 07/08/25 08:07 07/08/25 08:07 07/08/25 08:07 07/08/25 08:07
I&O
07/07/25 07/08/25 07/09/25
06:59 06:59 06:59
Intake Total 480 / 480
Output Total 300 / 300
Balance -300 / -300 480 / 480
Review of Systems
-
History Source: Patient
All other systems: Reviewed and negative
[2025-07-08] MEDS: KCL 40 MEQ PO (11:00)
[2025-07-08] MEDS: SODIUM BICARBONATE 1150 MEQ IV ×2 (11:00→21:39)
[2025-07-08 11:32] LABS: Magnesium 2.0 mg/dl (1.6-2.3)
--- NOTE | 2025-07-08 15:59 | CM ---
Patient stated that she is for discharge tomorrow. IMM provided and patient declined VN needs. CM will continue to follow for discharge planning needs.
Plan; home with no needs.
[2025-07-08] MEDS: XARELTO 20 MG PO (18:35)
[2025-07-08 19:29] LABS: Hepatitis C Antibody Negative (Negative)
[2025-07-08] MEDS: KCL 20 MEQ PO (19:45)
[2025-07-09] MEDS: TIKOSYN 500 MCG PO (02:57)
[2025-07-09] MEDS: TOPROL XL PO (03:05)
[2025-07-09 03:11] VITALS: BP 97/64
[2025-07-09 07:00] VITALS: BP 102/66
[2025-07-09 08:20] LABS: Hematocrit 29.4 % (37.0-47.0); Hemoglobin 10.0 g/dL (12.0-16.0); Mean Corp Hgb Conc. 34.0 g/dL (33.0-37.0); Mean Corpuscular Volume 93.6 fL (81.0-99.0); Platelet Count 173 10^3/uL (130-400); Red Cell Dist. Width 15.3 % (11.5-14.5)
[2025-07-09] MEDS: CRESTOR 20 MG PO (08:42)
[2025-07-09] MEDS: WELLBUTRIN XL (24 hour extended release) 150 MG PO (08:42)
[2025-07-09] MEDS: KCL 20 MEQ PO (08:42)
[2025-07-09] MEDS: FEMARA 2.5 MG PO (08:43)
[2025-07-09] MEDS: TOPROL XL 50 MG PO (08:43)
[2025-07-09 08:49] LABS: Blood Urea Nitrogen 4 mg/dl (7-17); Calcium 8.6 mg/dl (8.4-10.2); Carbon Dioxide 30 mmol/L (22-30); Chloride 101 mmol/L (98-107); Estimated Creatinine Clearance 76 ml/min; Glucose 89 mg/dl (70-99); Potassium 3.3 mmol/L (3.5-5.1); Sodium 134 mmol/L (135-145); eGFR > 60.00
--- NOTE | 2025-07-09 09:45 | W.PN.GS2 ---
Addendum entered and electronically signed by Luis Noriega MD 07/09/25 12:45:
Patient seen and examined.
No complaints. Tolerating low residue diet. Passing flatus and moving bowels. No nausea or vomiting.
Gen: NAD
Abd: soft, obese, NT/ND, non-peritoneal
Patient is a 74 yo Fp/w partial SBO
AVSS
Labs notable for reactive leukopenia, stable Hb, hypokalemia, hyponatremia, stable renal function
Clinically and radiographically improved. No plans for surgical intervention. Dietary education provided.
- LRD
- Call with questions or concerns
Original Note:
Today's Communication / Plan
-
Low residue diet
Dispo planning
Assessment / Plan
-
Ms. Fuller is a 74-year-old woman coming in with watery diarrhea of 1 week and bellyache. She reported that it started about a week ago after traveling to [place] with family and eating out at a restaurant where she ordered seafood. She was
admitted for metabolic derangements CT abdomen pelvis showed dilated small bowel and distention of colon with air in rectum.
#Metabolic acidosis secondary to acute diarrhea
# Partial SBO, resolved
Initially concern for SBO due to dilated bowel loops however air so present in colon and rectum
Noncontrast CT images hard to interpret
Contrast CT without obvious signs of bowel obstruction
No further episodes of diarrhea
Abdominal x-ray with contrast throughout colon and rectum, no signs of obstruction
- ADAT
- Low residue
- Follow-up stool culture and C. difficile
Subjective Data
-
Patient reported feeling well this morning. She reported no nausea no vomiting, she was able to pass stool and flatus yesterday and tolerate low residue diet. She reported no fevers chills chest pain or shortness of breath. Date of Service:
July 09, 2025
Objective Data
-
Intake and Output
07/08/25 07/09/25 07/10/25
06:59 06:59 06:59
Intake Total 480 / 480 480 / 480
Output Total 1680 / 1680
Balance 480 / 480 -1200 / -1200
Intake:
Oral fluids 480 / 480 480 / 480
Output:
Urine, Voided 0 / 1680
Other:
Number of approximated MODERATE 3 2
amounts of urine
Vital Signs
Temp Pulse Resp BP Pulse Ox
98 F 77 16 102/66 94
07/09/25 07:00 07/09/25 08:43 07/09/25 07:00 07/09/25 08:43 07/09/25 07:00
Lab Results
07/09/25 07:40
07/09/25 07:40
Calcium 8.6 mg/dl (8.4-10.2) 07/09/25 07:40
Magnesium 2.0 mg/dl (1.6-2.3) 07/08/25 07:20
Total Bilirubin 1.0 mg/dl (0.2-1.3) 07/06/25 13:07
AST 26 U/L (14-36) 07/06/25 13:07
ALT 32 U/L (0-35) 07/06/25 13:07
Alkaline Phosphatase 56 U/L (38-126) 07/06/25 13:07
Total Protein 6.9 g/dl (6.3-8.2) 07/06/25 13:07
Albumin 4.0 g/dl (3.5-5.0) 07/06/25 13:07
Physical Exam
-
General: Well Developed, Well Nourished, No Apparent Distress and Comfortable
GI: Soft, Non Distended, Mild tenderness to palpation left upper quadrant, left lower quadrant, no guarding, no rebound
Patient has a faye catheter: No
Patient has a central line: No
--- NOTE | 2025-07-09 10:23 | W.DS.TRANS ---
DC Summary - Compensation/Benefits Specialist
-
Discharge Instructions:
Discharge Diagnosis/Procedures Partial small bowel obstruction, acute
gastroenteritis, hypokalemia
Diet Low Residue
Activity As tolerated
Driving Restrictions As prior to admission
Bathing Restrictions None
Blood Work BMP in one week with your primary care doctor
Instructions:
Stand-Alone Forms:
Changes to Home Medications: No
Discharge Medications:
DC Medications w/original date entered in [facility]
glucosamine sulfate dipotassium Cl 500 mg-chondroitin 400 mg capsule 1 ea PO BID 07/28/09
abemaciclib 100 mg tablet (Verzenio) 100 mg PO BID 07/06/25
acetaminophen 300 mg-codeine 30 mg tablet 1 tab PO HS 07/06/25
bupropion HCl 150 mg 24 hr tablet, extended release 150 mg PO DAILY 07/06/25
dofetilide 500 mcg capsule 500 mcg PO Q12H 07/06/25
empagliflozin 10 mg tablet (Jardiance) 10 mg PO DAILY 07/06/25
furosemide 20 mg tablet 20 mg PO DAILY 07/06/25
letrozole 2.5 mg tablet 2.5 mg PO DAILY 07/06/25
loratadine 10 mg tablet (Claritin) 10 mg PO DAILY 07/06/25
metoprolol succinate 50 mg tablet,extended release 24 hr 50 mg PO Q12H 07/06/25
rivaroxaban 20 mg tablet (Xarelto) 20 mg PO DAILY 07/06/25
rosuvastatin 20 mg tablet 20 mg PO DAILY 07/06/25
tirzepatide (weight loss) 7.5 mg/0.5 mL subcutaneous pen injector (Zepbound) 7.5 mg SC WEEKLY 07/06/25
trospium 60 mg capsule,extended release 24 hr 60 mg PO DAILY 07/06/25
potassium chloride 20 mEq tablet,extended release(part/cryst) (Klor-Con M) 20 meq PO BID #30 tabs 07/09/25
Home Medication Changes
Pending Results: No
--- NOTE | 2025-07-09 10:27 | CM ---
Patient seen at bedside, [facility] completed 07/08 and patient for discharge home today with no needs. Patient has contacted family for transportation home. CM will continue to follow for discharge planning needs.
Plan; home with no needs
[2025-07-09] MEDS: KCL 40 MEQ PO (10:38)
--- NOTE | 2025-07-09 10:53 | W.PN.HOSP.TC ---
Today's Communication/Plan
-
Discharge
Assessment / Plan
Assessment / Plan
Gen-AAOx3, NAD
HEENT-NC, AT, anicteric, clear oral mm, NG tube disconnected
Neck-supple
CV-reg, no M, +S1/S2
Lungs-clear B/L
Abd-soft, NT, ND
Ext-no edema
Musculoskeletal-no cyanosis, clubbing
Skin-warm and dry
Neuro-grossly non-focal
Psych-calm, cooperative
Acute gastroenteritis -most likely diagnosis explaining her presentation to the hospital.
Tolerating low residue diet.
Gastroenteritis resolved. Stools are now soft.
Partial small bowel obstruction -resolved.
Abdominal x-ray 07/[address] down to the rectum.
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
Hypovolemic hyponatremia -134, monitor for now.
Hypokalemia - 3.3, continue repletion. Magnesium 2.0 yesterday. BMP next week as an outpatient.
Normal anion gap metabolic acidosis -resolved.
Paroxysmal atrial fibrillation -continue Xarelto, Tikosyn.
Leukopenia, anemia -present on admission. Baseline labs unknown. Monitor for now.
Essential hypertension -stable.
Hyperlipidemia -on rosuvastatin.
History of breast cancer -2022. Treated with left mastectomy, radiation and chemotherapy. Has port in place.
Recent PET scan is clear.
Chronic left adrenal mass -noted on CT scan, 3.1 cm. Increased in size compared to 2016 CT according to radiologist. Patient states she has never had a workup for this in the past. Recommend outpatient follow-up with endocrinology.
Colon polyps, diverticulosis, colonic angioectasia, internal hemorrhoids -noted on last colonoscopy December 2024.
Obesity due to excess calories
Full code
Dispo -stable for discharge home today. Outpatient follow-up.
32 minutes spent in discharge process.
Anticipated Discharge: Today
Subjective/Interval History
-
Date of Service: July 09, 2025
Patient seen and examined, no complaints. Eager to go home.
Objective Data
-
Labs:
Laboratory Results
07/09/25
07:40
WBC 2.7 L
Hgb 10.0 L
Hct 29.4 L
Plt Count 173
Sodium 134 L
Potassium 3.3 L
Chloride 101
Carbon Dioxide 30
BUN 4 L
Creatinine 0.5 L
Glucose 89
Calcium 8.6
Vital Signs:
Vital Signs
Temp Pulse Resp BP Pulse Ox
98 F 77 16 102/66 94
07/09/25 07:00 07/09/25 08:43 07/09/25 07:00 07/09/25 08:43 07/09/25 07:00
I&O
07/08/25 07/09/25 07/10/25
06:59 06:59 06:59
Intake Total 480 / 480 480 / 480
Output Total 1680 / 1680
Balance 480 / 480 -1200 / -1200
Review of Systems
-
History Source: Patient
All other systems: Reviewed and negative
[2025-07-09 11:12] VITALS: BP 96/65
== END 2025-07-09 13:40 | disposition home or self-care (01) | DRG 389 ==
LOC: 2 NORTH 19:55
PROVIDERS: Emergency Medicine; Registered Nurse; ADMITTING PHYSICIAN Internal Medicine; ATTENDING PHYSICIAN Hospitalist; EMERGENCY PHYSICIAN Emergency Medicine; FAMILY PHYSICIAN Nurse Practitioner Gerontology; OTHER PHYSICIAN Surgery
DX: K56.600 Partial intestinal obstruction, unspecified as to cause (principal); E87.1 Hypo-osmolality and hyponatremia; E87.20 Acidosis, unspecified; I42.8 Other cardiomyopathies; K52.9 Noninfective gastroenteritis and colitis, unspecified; E86.1 Hypovolemia; E87.6 Hypokalemia; I11.0 Hypertensive heart disease with heart failure; I50.9 Heart failure, unspecified; Z87.891 Personal history of nicotine dependence; Z96.653 Presence of artificial knee joint, bilateral; Z90.12 Acquired absence of left breast and nipple; Z88.1 Allergy status to other antibiotic agents; Z88.8 Allergy status to other drugs, medicaments and biological substances; Z88.5 Allergy status to narcotic agent; Z88.0 Allergy status to penicillin; Z85.3 Personal history of malignant neoplasm of breast; Z92.21 Personal history of antineoplastic chemotherapy; F41.9 Anxiety disorder, unspecified; I48.0 Paroxysmal atrial fibrillation; E78.00 Pure hypercholesterolemia, unspecified; E27.9 Disorder of adrenal gland, unspecified; K57.30 Diverticulosis of large intestine without perforation or abscess without bleeding; E86.0 Dehydration; F32.A Depression, unspecified; I87.2 Venous insufficiency (chronic) (peripheral); I89.0 Lymphedema, not elsewhere classified; K21.9 Gastro-esophageal reflux disease without esophagitis; M06.9 Rheumatoid arthritis, unspecified; Z79.01 Long term (current) use of anticoagulants; Z79.811 Long term (current) use of aromatase inhibitors; Z79.84 Long term (current) use of oral hypoglycemic drugs; Z79.899 Other long term (current) drug therapy; Z90.49 Acquired absence of other specified parts of digestive tract
CPT/HCPCS: 43752; 71045; 74019; 74177; 80048; 80053; 83605; 83690; 83735; 85025; 85027; 86803; 96361; 96365; 99285; Q9967